=== PATIENT | female | born 1975 | race Two or more races ===

== ENCOUNTER → 2018-11-15 | Outpatient (CLI) | payer OTHER ==
[2015-08-21 09:28] VITALS: BP 138/92
[~2018-11-15] MED LIST: MULT-208 PO
--- NOTE | 2018-11-15 15:27 | PCVCIMAG ---
APPROVED REPORT Study performed: 11/15/2018 10:22:04 Exam: Stress Echocardiogram Indication: Chest pain Patient Location: Echo lab Stress Nurse: Margot Barcenas RN Status: routine Ht: 5 ft 5 in HR: 81 bpm BP: 130/80 mmHg Rhythm: NSR Medical History Medical History: Family history of cad Procedure The patient underwent an Exercise Stress Test using the Jim Protocol. Blood pressure, heart rate, and EKG were monitored. An Echocardiogram was performed by machine tool technician instructor in four stages in quad fashion. At peak stress, four selected images were obtained and placed side by side with resting images for comparison. Stress Test Details Stress Test: Exercise stress testing was performed using a Jim protocol. HR Resting HR: 81 bpmMax Heart Rate (APMHR): 175 bpm Max HR Achieved: 164 bpmTarget HR (85% APMHR): 148 bpm % of APMHR: 93 Recovery HR: 87 bpm HR response to stress: Normal HR response to stress BP Resting BP: 130/80 mmHg Max BP: 164/80 mmHg Recovery BP: 140/74 mmHg BP response to stress: Normal blood pressure response to stress. ECG Resting ECG: Sinus Rhythm Stress ECG: Sinus Rhythm Recovery ECG: Sinus Rhythm Clinical Reason for Termination: Maximal effort Exercise duration: 7 min 45 sec Highest Stage Achieved: Stage 3: 3.4 mph at 14% grade. Exercise capacity: 10.10 METs Overall Exercise Capacity for Age: Normal Pre-Stress Echo The resting Echocardiogram showed normal left ventricular contractility with an estimated Ejection Fraction of about 55-60%. Normal wall motion in all segments on baseline images. Post-Stress Echo The stress Echocardiogram showed normal left ventricular contractility with an estimated Ejection Fraction of about 60-65%. Normal augmentation of wall motion in all segments on post stress images. Clinical No clinical or ECG evidence for ischemia. Conclusion Clinical Response: Non-ischemic Exercise Capacity: Average Stress ECG Response: Non-ischemic Stress Echo Images: Non-ischemic The left ventricle is normal in size and wall thickness in both the rest and stress images. Trace tricuspid regurgitation. No other valvular insufficiences or stenosis. Pulmonary artery pressure is 27mmHg. Other Information Study Quality: Adequate <Conclusion> The left ventricle is normal in size and wall thickness in both the rest and stress images. Trace tricuspid regurgitation. No other valvular insufficiences or stenosis. Pulmonary artery pressure is 27mmHg.
== END | disposition home or self-care (01) ==
LOC: PCVCIMAG 10:11
PROVIDERS: ATTEND Internal Medicine Cardiovascular Disease
DX: R07.9 Chest pain, unspecified (principal); R53.83 Other fatigue; I10 Essential (primary) hypertension; Z82.49 Family history of ischemic heart disease and other diseases of the circulatory system
CPT/HCPCS: 93325; 93351